=== PATIENT | female | born 1980 | race Two or more races ===

== ENCOUNTER → 2024-11-29 | Outpatient (CLI) | payer MEDICAID ==
[~2024-11-29] VITALS: Ht 170.2 cm; Wt 108.9 kg
[2024-11-29] MEDS: REGADENOSON 0.4 MG/5 ML SYRG IV ONE ×2 (09:11→11:06)
--- NOTE | 2024-11-29 14:09 | DVHSR ---
APPROVED REPORT Exam: Nuclear Stress Test BMI: 0 Stress Test Details HR Max Heart Rate (APMHR): 177 bpm Target HR (85% APMHR): 150 bpm BP ECG Resting ECG: Sinus Rhythm Stress ECG: Sinus Rhythm ST Change: None Stress ECG Conclusion The quality of the study is fair. There is mildly decreased radiotracer uptake in the anterior wall region on the stress image without associated wall motion abnormality which likely represents image artifact. The remaining LV myocardium demonstrates homogeneous radiotracer uptake both on stress and rest SPECT images. The left ventricular systolic function is preserved with a calculated ejection fraction of 71%. There is no evidence of vasodilator induced myocardial ischemia. NM EXAM: Myocardial Perfusion REST/STRESS Imaging Protocol: Rest Tc-99m/Stress Tc-99m 1 day Resting Data Rest SPECT myocardial perfusion imaging was performed in supine position 60 minutes following the int ravenous injection of 12.5 mCi of Tc-99m Sestamibi. Time of rest injection: 0911 Time of rest imagin Administration Route: IV Administration Site: Left Arm Pharmacologic Stress Pharmacologic stress test was performed by injecting Regadenoson 0.4 mg IV push followed by the intra venous injection of 32 mCi of Tc-99m Sestamibi. Time of stress injection: 1107 Time of stress imagin Administration Route: IV Administration Site: Left Arm Gated Stress SPECT was performed 60 minutes after stress injection. The images were gated to evaluate regional wall motion and calculate left ventricular ejection fracti on. Stress only was performed in the Supine position. Study Data Post stress, the left ventricular ejection was 71%.. Nuclear Conclusion The quality of the study is fair. There is mildly decreased radiotracer uptake in the anterior wall region on the stress image without associated wall motion abnormality which likely represents image artifact. The remaining LV myocardium demonstrates homogeneous radiotracer uptake both on stress and rest SPECT images. The left ventricular systolic function is preserved with a calculated ejection fraction of 71%. There is no evidence of vasodilator induced myocardial ischemia.
== END | disposition home or self-care (01) ==
LOC: XYW 08:25
PROVIDERS: ATTEND Specialist
DX: I10 Essential (primary) hypertension (principal); J44.9 Chronic obstructive pulmonary disease, unspecified; R00.0 Tachycardia, unspecified; R07.9 Chest pain, unspecified
CPT/HCPCS: 78452; 93017; A9500; J2785